=== PATIENT | male | born 2005 | race Caucasian/White ===

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

== ENCOUNTER 2025-07-30 08:01 | Emergency (ER) | payer OTHER, SELFPAY | END 2025-07-30 08:32 | disposition home or self-care (01) | LOC: NAV ERS 08:01 | DX: H60.502 Unspecified acute noninfective otitis externa, left ear (principal) | CPT/HCPCS: 99282 ==